=== PATIENT | male | born 1980 | race Two or more races ===

== ENCOUNTER 2024-03-19 09:28 | Emergency (ER) | payer MEDICAID, SELFPAY ==
[2024-03-19 10:24] VITALS: BP 125/81; PULSE 102; RESP 19; TEMP 36.7; O2SAT 98; BMI 34.9
--- NOTE | 2024-03-19 10:38 | EDNOTE_ITS ---
ED Abdominal Pain RME/HPI General Chief Complaint: Abdominal Pain Stated complaint: ABCESS ON HIS ABD Time seen by provider: 03/19/24 10:03 Arrival date/time: 03/19/24 09:28 This is a 43-year-old male who presents to the emergency department with complaints of a small painful lesion near umbilicus. Noticed swelling and tenderness for 2 days. Patient did not attempt any interventions or take any OTC medications prior to ED visit. Patient denies any other associated symptoms or aggravating factors. No modifying factors, no radiation, no migration. Denies fever, chills, rigors. Related Data Previous Rx's ?Medication ?Instructions ?Recorded cephalexin 500 mg capsule 500 mg PO BID 7 days #14 caps 03/19/24 mupirocin 2 % topical ointment 1 applic topical BID 7 days #15 03/19/24 grams Allergies Allergy/AdvReac Type Severity Reaction Status Date / Time bee venom protein (honey bee) Allergy Verified 03/19/24 09:31 iodamide Allergy Verified 03/19/24 09:31 BEE Allergy Uncoded 03/19/24 09:31 Review of Systems Review of Systems Systems Reviewed: All systems reviewed, normal except as documented Narrative Review of Systems: Gen: No fever, no chills, no weight loss EYES: No discharge, no visual changes, no pain HEENT: No ear pain, no congestion, no sore throat PULM: No shortness of breath, no cough, no congestion CV: No chest pain, no dyspnea on exertion, no palpitations GI: No nausea, no vomiting, no diarrhea, no pain, no constipation : No frequency, no urgency,? no dysuria Musc/skel: No joint pain, no back pain Skin:+ Skin infection to umbilicus ED Exam Narrative Physical exam: General: Sittiing in Exam table in no acute distress, answering questions appropriately HENT: normocephalic, atraumatic, EOMI, PERRLA, moist mucous membranes Chest: chest wall is nontender Cardiac: regular rate and rhythm, normal S1 and S2, no murmurs, rubs, or gallops, capillary refill ?2 seconds Pulmonary: clear to auscultation bilaterally, no wheezing, crackles, or rhonchi Abdominal: active bowel sounds, soft, nontender, nondistended Neuro: A&OX3, CN II-XII intact, sensation grossly intact bilaterally in UE and LE. Skin: Small erythemic lesion near umbilicus no abscess formation. Ext: no lower extremity edema Course Quality Measures none Vital Signs Vital signs: Vital Signs Temperature 98.1 F 03/19/24 10:24 Pulse Rate 102 H 03/19/24 10:24 Respiratory Rate 19 03/19/24 10:24 Blood Pressure 125/81 03/19/24 10:24 Pulse Oximetry (%) 98 03/19/24 10:24 Oxygen Delivery Method Room Air 03/19/24 10:24 Abdominal Pain MDM MDM Narrative MDM Narrative:: Mild cellulitis noted to umbilicus area. Patient does not appear toxic. No chills no rigors no fever. Will treat with outpatient antibiotic therapy. Advised to keep area clean and dry follow-up with primary doctor return to the emergency department this any worsening symptoms change in condition. Patient data External records reviewed:: [facility] previous records Clinical information provided by:: patient Social determinants that could affect healthcare access:: none Patient has the following chronic illnesses:: none How is presenting disease/condition affected by chronic disease/condition?: no chronic disease Evaluation data The following diagnostics were reviewed and interpreted by me:: other (specify) Lab and/or radiology exams considered but not ordered:: none Interpretation Summary: none Medications / Prescriptions Medications or Prescriptions considered but not ordered:: none Medication administrations:: none Consultations Consultation(s) initiated? (list below): No Diagnosis Differential diagnosis abdominal pain: abdominal pain Most likely diagnosis given after review of the tests above:: Cellulitis of Umbilicus Admission Indicated Admission indicated?: not indicated Explain why admission is indicated or not indicated:: none Admission Request Was there a request for admission?: No Disposition Plan Disposition Plan: Discharge Discharge Attestation Discharge Attestation: The patient and all family members were given an opportunity to ask questions and understood the discharge instructions. Discharge instructions specifically effects, indications for sooner follow up or return to the emergency department, and the expected course of current diagnosis. Patient condition: Stable Discharge Plan Plan Patient Disposition: HOME (Self Care) Patient condition on transfer: Stable Prescriptions/Referrals Prescriptions/Med Rec: New cephalexin 500 mg capsule 500 mg PO BID 7 Days Qty: 14 0RF mupirocin 2 % ointment 1 applic topical BID 7 Days Qty: 15 0RF Problem List Clinical Impression: Cellulitis of umbilicus Patient/Caregiver Discharge Instructions Discharge Activity: activity as tolerated Education Materials: ED Cellulitis Additional Instructions: Keep area clean and dry. Apply ointment with a Q-tip as directed. Take antibiotics prescribed complete course. Follow-up with your clinic or DrMert 2 to 3 days for follow-up care. Return to the emergency department this any worsening symptoms any condition Print Language: Lithuanian Stand Alone Forms: Bebe Award Info., Patient Portal Info Letter PA/CUTTING AND PRINTING MACHINE OPERATOR Supervising Physician PA/FLAVIO Supervising Physician: Dr Huerta
== END 2024-03-19 11:47 | disposition home or self-care (01) ==
LOC: SERX 11:06
PROVIDERS: Emergency Provider Emergency Medicine
DX: L03.316 Cellulitis of umbilicus (principal)
CPT/HCPCS: 99281

== ENCOUNTER 2024-12-19 12:44 | Emergency (ER) | payer SELFPAY ==
[2024-12-19 12:48] VITALS: BMI 40.4
[2024-12-19 13:22] VITALS: BP 122/80; PULSE 78; RESP 18; TEMP 36.8; O2SAT 97
--- NOTE | 2024-12-19 13:25 | EDNOTE_ITS ---
<Statement entered by Aparna Peres MD - 12/22/24 18:01> As co-signing physician, I was present and available for consult prn. I concur with the plan and care as documented by the midlevel provider. ED Dental RME/HPI General Chief complaint: Dental/Oral/Throat Stated complaint: TOOTH PAIN Time Seen by Provider: 12/19/24 12:46 Arrival date/time: 12/19/24 12:44 44-year-old male presents to the emergency room today for complaint of dental caries and dental pain patient for symptom onset approximate 1 week ago patient reports pain is acute on chronic. Patient reports no fever nausea or vomiting Limitations: no limitations Related Data Previous Rx's ?Medication ?Instructions ?Recorded amoxicillin 875 mg-potassium 1 tab PO BID 10 days #20 tabs 12/19/24 clavulanate 125 mg tablet hydrocodone 5 mg-acetaminophen 325 1 tab PO BID PRN pa in #6 tabs 12/19/24 mg tablet ibuprofen 800 mg tablet 800 mg PO TID PRN pain #30 t abs 12/19/24 Allergies Allergy/AdvReac Type Severity Reaction Status Date / Time bee venom protein (honey bee) Allergy Verified 03/19/24 09:31 iodamide Allergy Verified 03/19/24 09:31 BEE Allergy Uncoded 03/19/24 09:31 Review of Systems Review of Systems Systems Reviewed: All systems reviewed, normal except as documented Constitutional Constitutional: Reports system reviewed and no additional complaints, except as documented, Denies fever(s) and Denies headache(s) Eyes Eyes: Reports system reviewed and no additional complaints, except as documented and Denies blurry vision ENT Ears, Nose, Mouth, and Throat: Reports system reviewed and no additional complaints, except as documented, Denies headache(s), Denies nasal congestion and Denies nasal discharge Cardiovascular Cardiovascular: Reports system reviewed and no additional complaints, except as documented, Denies chest pain and Denies dyspnea Respiratory Respiratory: Reports system reviewed and no additional complaints, except as documented, Denies chest congestion, Denies cough and Denies dyspnea Gastrointestinal Gastrointestinal: Reports system reviewed and no additional complaints, except as documented and Denies abdominal pain Integumentary/Breasts Skin/Breast: Reports system reviewed and no additional complaints, except as documented and Denies rash Neurologic Neurologic: Reports system reviewed and no additional complaints, except as documented, Reports as per HPI and Denies headache(s) Past Medical History Social History SMOKING STATUS: Never smoker ED Exam General Limitations: Present no limitations General appearance: Present alert and in no apparent distress Head Head exam: Present atraumatic Eye Eye exam: Present normal appearance, PERRL and EOMI ENT ENT exam: Present mucous membranes moist and other (Pain) Neck Neck exam: Present normal inspection, full ROM and trachea midline Chest Chest inspection: Present normal inspection and symmetric chest wall rise Respiratory Respiratory exam: Present normal lung sounds bilaterally Cardiovascular Cardiovascular exam: Present regular rate, normal rhythm and normal heart sounds Abdominal Exam Abdominal exam: Present soft and normal bowel sounds Extremities Exam Extremities exam: Present normal inspection and full ROM Back Exam Back exam: Present normal inspection and full ROM Neurological Exam Neurological exam: Present alert, oriented X3 and CN II-XII intact Psychiatric Psychiatric exam: Present normal affect and normal mood Skin Skin exam: Present warm, dry, intact and normal color Course Quality Measures none Vital Signs Vital signs: Vital Signs Temperature 98.3 F 12/19/24 13:22 Pulse Rate 78 12/19/24 13:22 Respiratory Rate 18 12/19/24 13:22 Blood Pressure 122/80 12/19/24 13:22 Pulse Oximetry (%) 97 12/19/24 13:22 Oxygen Delivery Method Room Air 12/19/24 13:22 Dental / Oral MDM Narrative MDM Narrative:: 44-year-old male presents to the emergency room today for complaint of dental caries and dental pain patient for symptom onset approximate 1 week ago patient reports pain is acute on chronic. Patient reports no fever nausea or vomiting On exam patient well-appearing patient does not appear toxic no acute distress On exam patient does have chronic dental problems including multiple dental caries Patient discharged home in no distress to follow-up with primary care doctor in the next 24 to 48 hours and for any worsening symptoms to return to the ER immediately Patient data External records reviewed:: [facility] previous records Clinical information provided by:: patient Social determinants that could affect healthcare access:: none Patient has the following chronic illnesses:: None How is presenting disease/condition affected by chronic disease/condition?: no chronic disease Evaluation data The following diagnostics were reviewed and interpreted by me:: other (specify) Lab and/or radiology exams considered but not ordered:: Considered not indicated Interpretation Summary: N/A Medications / Prescriptions Medications or Prescriptions considered but not ordered:: Given Medication administrations:: Given Consultations Consultation(s) initiated? (list below): No Diagnosis Dental Differential Diagnosis: gingival abscess, dental caries, toothache and dental abscess Most likely diagnosis given after review of the tests above:: Dental pain Admission Indicated Admission indicated?: not indicated Admission Request Was there a request for admission?: No Disposition Plan Disposition Plan: Discharge Discharge Attestation Discharge Attestation: The patient and all family members were given an opportunity to ask questions and understood the discharge instructions. Discharge instructions specifically effects, indications for sooner follow up or return to the emergency department, and the expected course of current diagnosis. Patient condition: Stable Discharge Plan Plan Patient Disposition: HOME (Self Care) Discharge Disposition comment: Stable Prescriptions/Referrals Prescriptions/Med Rec: New ibuprofen 800 mg tablet 800 mg PO TID PRN (Reason: pain) Qty: 30 0RF hydrocodone-acetaminophen 5-325 mg tablet 1 tab PO BID MDD 10 PRN (Reason: pain) Qty: 6 0RF amoxicillin-pot clavulanate 875-125 mg tablet 1 tab PO BID 10 Days Qty: 20 0RF Problem List Clinical Impression: Dental caries Patient/Caregiver Discharge Instructions Education Materials: ED Dental Cavity Additional Instructions: Please follow up with your primary care doctor in the next 24-48hrs for any worsening symptoms return here immediately Print Language: Mozambican Stand Alone Forms: Bebe Award Info., Patient Portal Info Letter PA/FLAVIO Supervising Physician PA/FLAVIO Supervising Physician: Dr. peres
== END 2024-12-19 15:32 | disposition home or self-care (01) ==
PROVIDERS: Emergency Provider Emergency Medicine
DX: K02.9 Dental caries, unspecified (principal)
CPT/HCPCS: 99281

== ENCOUNTER 2025-02-14 13:37 | Emergency (ER) | payer SELFPAY ==
[2025-02-14 13:53] VITALS: BP 145/84; PULSE 105; RESP 18; TEMP 37.3; O2SAT 98; BMI 38.5
--- NOTE | 2025-02-14 14:34 | PD.EDDENTL ---
ED Dental RME/HPI General Chief complaint: Dental/Oral/Throat Stated complaint: MOLAR HURTS Time Seen by Provider: 02/14/25 13:42 Arrival date/time: 02/14/25 13:37 44-year-old male presents to the emergency department for complaint of dental pain patient reports multiple teeth hurt Limitations: no limitations Related Data Previous Rx's ?Medication ?Instructions ?Recorded hydrocodone 5 mg-acetaminophen 325 1 tab PO BID PRN pain #6 tabs 12/19/24 mg tablet ibuprofen 800 mg tablet 800 mg PO TID PRN pain #30 tabs 12/19/24 amoxicillin 875 mg-potassium 1 tab PO BID 10 days #20 tabs 02/14/25 clavulanate 125 mg tablet ibuprofen 800 mg tablet 800 mg PO TID PRN pain #30 tabs 02/14/25 Allergies Allergy/AdvReac Type Severity Reaction Status Date / Time bee venom protein (honey bee) Allergy Verified 02/14/25 13:41 iodamide Allergy Verified 02/14/25 13:41 Iodinated Contrast Media Allergy Verified 02/14/25 13:42 BEE Allergy Uncoded 02/14/25 13:41 Review of Systems Review of Systems Systems Reviewed: All systems reviewed, normal except as documented Constitutional Constitutional: Reports system reviewed and no additional complaints, except as documented, Denies fever(s) and Denies headache(s) Eyes Eyes: Reports system reviewed and no additional complaints, except as documented and Denies blurry vision ENT Ears, Nose, Mouth, and Throat: Reports system reviewed and no additional complaints, except as documented, Reports dental pain, Denies headache(s), Denies nasal congestion and Denies nasal discharge Cardiovascular Cardiovascular: Reports system reviewed and no additional complaints, except as documented, Denies chest pain and Denies dyspnea Respiratory Respiratory: Reports system reviewed and no additional complaints, except as documented, Denies chest congestion, Denies cough and Denies dyspnea Gastrointestinal Gastrointestinal: Reports system reviewed and no additional complaints, except as documented and Denies abdominal pain Integumentary/Breasts Skin/Breast: Reports system reviewed and no additional complaints, except as documented and Denies rash Neurologic Neurologic: Reports system reviewed and no additional complaints, except as documented, Reports as per HPI and Denies headache(s) Past Medical History Social History SMOKING STATUS: Never smoker ED Exam General Limitations: Present no limitations General appearance: Present alert and in no apparent distress Head Head exam: Present atraumatic Eye Eye exam: Present normal appearance, PERRL and EOMI ENT ENT exam: Present mucous membranes moist Expanded ENT Exam Teeth exam: Present dental caries, fractured tooth #, dental tenderness # and gingival swelling Neck Neck exam: Present normal inspection, full ROM and trachea midline Chest Chest inspection: Present normal inspection and symmetric chest wall rise Respiratory Respiratory exam: Present normal lung sounds bilaterally Cardiovascular Cardiovascular exam: Present regular rate, normal rhythm and normal heart sounds Abdominal Exam Abdominal exam: Present soft and normal bowel sounds Extremities Exam Extremities exam: Present normal inspection and full ROM Back Exam Back exam: Present normal inspection and full ROM Neurological Exam Neurological exam: Present alert, oriented X3 and CN II-XII intact Psychiatric Psychiatric exam: Present normal affect and normal mood Skin Skin exam: Present warm, dry, intact and normal color Course Quality Measures none Vital Signs Vital signs: Vital Signs Temperature 99.1 F 02/14/25 13:53 Pulse Rate 105 H 02/14/25 13:53 Respiratory Rate 18 02/14/25 13:53 Blood Pressure 145/84 H 02/14/25 13:53 Pulse Oximetry (%) 98 02/14/25 13:53 Oxygen Delivery Method Room Air 02/14/25 13:53 O2 saturation 98% room air within normal limits Dental / Oral MDM Narrative MDM Narrative:: 44-year-old male presents to the emergency department for complaint of dental pain patient reports multiple teeth hurt Clinically patient well-appearing does not appear ill or toxic no acute distress On exam patient does have poor dentition patient was treated course of antibiotics and pain medication Patient discharged home in no distress to follow-up with primary care doctor in the next 24 to 48 hours and for any worsening symptoms to return to the ER immediately Patient data External records reviewed:: [facility] previous records Clinical information provided by:: patient Social determinants that could affect healthcare access:: none Patient has the following chronic illnesses:: None How is presenting disease/condition affected by chronic disease/condition?: no chronic disease Evaluation data The following diagnostics were reviewed and interpreted by me:: other (specify) Lab and/or radiology exams considered but not ordered:: Considered not ordered Interpretation Summary: N/A Medications / Prescriptions Medications or Prescriptions considered but not ordered:: Given Medication administrations:: Given Consultations Consultation(s) initiated? (list below): No Diagnosis Dental Differential Diagnosis: gingival abscess, dental caries, toothache, dental abscess and fracture of tooth Most likely diagnosis given after review of the tests above:: Dental abscess, toothache Admission Indicated Admission indicated?: not indicated Admission Request Was there a request for admission?: No Disposition Plan Disposition Plan: Discharge Discharge Attestation Discharge Attestation: The patient and all family members were given an opportunity to ask questions and understood the discharge instructions. Discharge instructions specifically effects, indications for sooner follow up or return to the emergency department, and the expected course of current diagnosis. Patient condition: Stable Discharge Plan Plan Patient Disposition: HOME (Self Care) Discharge Disposition comment: Stable Prescriptions/Referrals Prescriptions/Med Rec: New ibuprofen 800 mg tablet 800 mg PO TID PRN (Reason: pain) Qty: 30 0RF amoxicillin-pot clavulanate 875-125 mg tablet 1 tab PO BID 10 Days Qty: 20 0RF No Action ibuprofen 800 mg tablet 800 mg PO TID PRN (Reason: pain) Qty: 30 0RF hydrocodone-acetaminophen 5-325 mg tablet 1 tab PO BID MDD 10 PRN (Reason: pain) Qty: 6 0RF Problem List Clinical Impression: Toothache Patient/Caregiver Discharge Instructions Education Materials: ED Dental Pain Additional Instructions: Please follow up with your primary care doctor in the next 24-48hrs for any worsening symptoms return here immediately Print Language: Amharic Stand Alone Forms: Bebe Award Info., Patient Portal Info Letter PA/CONSTRUCTION PRODUCER Supervising Physician PA/FLAVIO Supervising Physician: dr heredia
== END 2025-02-14 14:59 | disposition home or self-care (01) ==
LOC: SERX 15:03
PROVIDERS: Emergency Provider Nurse Practitioner Primary Care
DX: K08.89 Other specified disorders of teeth and supporting structures (principal)
CPT/HCPCS: 99281